=== PATIENT | female | born 1970 | race Two or more races ===

== ENCOUNTER 2022-04-13 13:16 | Emergency (ER) | payer OTHER ==
[~2022-04-13] VITALS: Ht 154.9 cm; Wt 68.0 kg
== END 2022-04-13 17:28 ==
LOC: ER 13:16
DX: M75.32 Calcific tendinitis of left shoulder (principal); E11.9 Type 2 diabetes mellitus without complications; E03.9 Hypothyroidism, unspecified; M79.7 Fibromyalgia; I10 Essential (primary) hypertension

== ENCOUNTER 2022-06-13 08:42 | Outpatient (CLI) | payer OTHER | END 2022-06-13 08:51 | disposition home or self-care (01) | LOC: RX STUDY 08:42 | DX: R11.2 Nausea with vomiting, unspecified (principal); Z98.84 Bariatric surgery status ==